=== PATIENT | male | born 1945 | race Hispanic/Latino ===

== ENCOUNTER 2017-09-05 10:45 | Emergency (ER) | payer OTHER ==
[2017-09-05] MEDS ORDERED: KETOROLAC 30 MG/ML INJ ONE (11:34)
[2017-09-05] MEDS ORDERED: ONDANSETRON 4 MG/2 ML VIAL ONE (11:34)
[2017-09-05] MEDS ORDERED: NA CHLORIDE 0.9% 1,000 ML ONE (11:35)
[2017-09-05 11:51] LABS: Absolute Monocytes 0.6 K/uL (0.1-1.3); Absolute Neutrophil 2.7 K/uL (1.8-8.0); Basophils % 0.9 % (0-1.3); Eosinophils % 2.5 % (0-4.4); Hematocrit 39.5 % (39.6-49.0); Lymphocytes % 23.1 % (15.3-44.8); MCH 31.3 pg (27.0-35.0); MCV 93.4 fL (80-100); MPV 9.4 fL (7.6-11.3); Monocytes % 13.7 % (3.3-12.3); RBC Red Blood Cell Count 4.23 M/uL (4.33-5.43)
[2017-09-05 11:55] LABS: Protime INR 1.06
[2017-09-05 12:15] LABS: Potassium 4.1 mEq/L (3.6-5.0)
[2017-09-05 12:21] LABS: Albumin 3.8 g/dL (3.2-5.5); Bilirubin Direct 0.1 mg/dL (0-0.2); Bilirubin Total 0.7 mg/dL (0.3-1.2); Protein, Total 7.1 g/dL (6.0-8.3)
[2017-09-05 12:23] LABS: CKMB Creatine Kinase MB 0.8 ng/ml (0.3-4.0)
--- NOTE | 2017-09-05 12:27 | RAD REPORT ---
EXAM DESCRIPTION: RAD - Chest Single View - 09/05/2017 11:53 am CLINICAL HISTORY: Chest pain. COMPARISON: 05/18/2015 FINDINGS: Portable technique limits examination quality. The lungs are emphysematous but grossly clear. The heart is normal in size. No displaced fractures. IMPRESSION: No acute intrathoracic process suspected.
--- NOTE | 2017-09-05 13:03 | RAD REPORT ---
EXAM DESCRIPTION: CT - Head Brain Wo Cont - 09/05/2017 12:46 pm CLINICAL HISTORY: Headache COMPARISON: None. TECHNIQUE: All CT scans are performed using dose optimization technique as appropriate and may inclu de automated exposure control or mA/KV adjustment according to patient size. FINDINGS: No intracranial hemorrhage, hydrocephalus or extra-axial fluid collection.No areas of brai n edema or evidence of midline shift. The paranasal sinuses and mastoids are clear. The calvarium is intact. IMPRESSION: No acute intracranial abnormality.
--- NOTE | 2017-09-05 13:04 | RAD REPORT ---
EXAM DESCRIPTION: CT - Head angio - 09/05/2017 12:48 pm CLINICAL HISTORY: Headache COMPARISON: Noncontrast CT head same date. FINDINGS: CT angiogram of the [place] was performed. Codominant vertebral arteries are noted. No aneurysm, flow-limiting stenosis or vascular malformation . No dural venous sinus thrombosis seen. IMPRESSION: No significant flow abnormality of the [place] is seen.
--- NOTE | 2017-09-05 13:15 | EDPHYS ---
Physician Documentation [facility] Name: Srikanth Buchanan Age: 72 yrs Sex: Male : 1945 Arrival Date: 09/05/2017 Time: 10:48 Bed 5 Private MD: David Ledbetter V ED Physician Catarino Tomlinson HPI: 09/05 11:19 This 72 yrs old Male presents to ER via Ambulatory with complaints of Headache.ghazala 11:19 The patient complains of pain to the top of head, forehead, left frontal area and right ghazala frontal area. The patient describes the headache as aching, constant. Onset: The symptoms/episode began/occurred 3 day(s) ago. Associated signs and symptoms: The patient has no apparent associated signs or symptoms. Severity of symptoms: At its worst the pain was mild, moderate, in the emergency department the pain is unchanged. Headache History: Denies prior headaches. The symptoms are alleviated by nothing. the symptoms are aggravated by nothing. The patient has not experienced similar symptoms in the past. Historical: - Allergies: 10:58 No Known Allergies; hb - Home Meds: 10:58 aspirin 81 mg Oral chew 1 tab once daily [Active]; Simvastatin Oral [Active]; hb - PMHx: 10:58 Prostate CA; hb - PSHx: 10:58 Prostate; hb - Immunization history:: Adult Immunizations up to date. - Social history:: Smoking status: Patient/guardian denies using tobacco. - Ebola Screening: : No symptoms or risks identified at this time. - Family history:: not pertinent. ROS: 11:19 Constitutional: Negative for fever, chills, and weight loss, Eyes: Negative for injury, ghazala pain, redness, and discharge, ENT: Negative for injury, pain, and discharge, Neck: Negative for injury, pain, and swelling, Cardiovascular: Negative for chest pain, palpitations, and edema, Respiratory: Negative for shortness of breath, cough, wheezing, and pleuritic chest pain, Abdomen/GI: Negative for abdominal pain, nausea, vomiting, diarrhea, and constipation, Back: Negative for injury and pain, : Negative for injury, bleeding, discharge, and swelling, MS/Extremity: Negative for injury and deformity, Skin: Negative for injury, rash, and discoloration, Psych: Negative for depression, anxiety, suicide ideation, homicidal ideation, and hallucinations, Allergy/Immunology: Negative for hives, rash, and allergies, Endocrine: Negative for neck swelling, polydipsia, polyuria, polyphagia, and marked weight changes, Hematologic/Lymphatic: Negative for swollen nodes, abnormal bleeding, and unusual bruising. 11:19 Neuro: Positive for headache. Exam: 11:19 Constitutional: This is a well developed, well nourished patient who is awake, alert, ghazala and in no acute distress. Head/Face: Normocephalic, atraumatic. Eyes: Pupils equal round and reactive to light, extra-ocular motions intact. Lids and lashes normal. Conjunctiva and sclera are non-icteric and not injected. Cornea within normal limits. Periorbital areas with no swelling, redness, or edema. ENT: Nares patent. No nasal discharge, no septal abnormalities noted. Tympanic membranes are normal and external auditory canals are clear. Oropharynx with no redness, swelling, or masses, exudates, or evidence of obstruction, uvula midline. Mucous membranes moist. Neck: Trachea midline, no thyromegaly or masses palpated, and no cervical lymphadenopathy. Supple, full range of motion without nuchal rigidity, or vertebral point tenderness. No Meningismus. Chest/axilla: Normal chest wall appearance and motion. Nontender with no deformity. No lesions are appreciated. Cardiovascular: Regular rate and rhythm with a normal S1 and S2. No gallops, murmurs, or rubs. Normal PMI, no JVD. No pulse deficits. Respiratory: Lungs have equal breath sounds bilaterally, clear to auscultation and percussion. No rales, rhonchi or wheezes noted. No increased work of breathing, no retractions or nasal flaring. Abdomen/GI: Soft, non-tender, with normal bowel sounds. No distension or tympany. No guarding or rebound. No evidence of tenderness throughout. Back: No spinal tenderness. No costovertebral tenderness. Full range of motion. Skin: Warm, dry with normal turgor. Normal color with no rashes, no lesions, and no evidence of cellulitis. MS/ Extremity: Pulses equal, no cyanosis. Neurovascular intact. Full, normal range of motion. Neuro: Awake and alert, GCS 15, oriented to person, place, time, and situation. Cranial nerves II-XII grossly intact. Motor strength 5/5 in all extremities. Sensory grossly intact. Cerebellar exam normal. Normal gait. Psych: Awake, alert, with orientation to person, place and time. Behavior, mood, and affect are within normal limits. 11:19 Neck: ROM/movement: is normal, no acute changes, Meningeal signs: are not present, Kernig's sign is negative, Brudzinski's sign is negative. Vital Signs: 10:56 BP 128 / 69; Pulse 60; Resp 16; Temp 98.7; Pulse Ox 99% on R/A; Weight 61.23 kg; Height hb 5 ft. 8 in. (172.72 cm); Pain 10/10; 12:25 BP 136 / 78; Pulse 57; Resp 16; Pulse Ox 99% ; jl7 12:50 BP 107 / 56; Pulse 51; Resp 14 S; Pulse Ox 97% on R/A; aa5 13:30 BP 103 / 57; Pulse 52; Resp 16 S; Pulse Ox 99% on R/A; Pain 3/10; aa5 10:56 Body Mass Index 20.53 (61.23 kg, 172.72 cm) hb MDM: 10:59 Patient medically screened. [facility] 11:22 Data reviewed: vital signs, nurses notes, lab test result(s), EKG, radiologic studies, [facility] CT scan, plain films. 09/05 11:19 Order name: Basic Metabolic Panel; Complete Time: 13:12 [facility] 09/05 11:19 Order name: BNP; Complete Time: 13:12 [facility] 09/05 11:19 Order name: CBC with Diff; Complete Time: 12:22 [facility] 09/05 11:19 Order name: Ckmb; Complete Time: 13:12 [facility] 09/05 11:19 Order name: CPK; Complete Time: 13:12 [facility] 09/05 11:19 Order name: LFT's; Complete Time: 13:12 [facility] 09/05 11:19 Order name: Magnesium; Complete Time: 13:12 [facility] 09/05 11:19 Order name: PT-INR; Complete Time: 12:22 [facility] 09/05 11:19 Order name: Ptt, Activated; Complete Time: 12:22 [facility] 09/05 11:19 Order name: Troponin (emerg Dept Use Only); Complete Time: 12:22 [facility] 09/05 11:19 Order name: XRAY Chest (1 view); Complete Time: 13:12 [facility] 09/05 11:19 Order name: CT Head Brain wo Cont; Complete Time: 13:12 [facility] 09/05 11:20 Order name: Head angio; Complete Time: 13:12 [facility] 09/05 11:19 Order name: EKG; Complete Time: 11:19 [facility] 09/05 11:19 Order name: Cardiac monitoring; Complete Time: 11:31 [facility] 09/05 11:19 Order name: EKG - Nurse/Tech; Complete Time: 12:18 [facility] 09/05 11:19 Order name: IV Saline Lock; Complete Time: 11:31 [facility] 09/05 11:19 Order name: Labs collected and sent; Complete Time: : [facility] 09/05 11:19 Order name: O2 Per Protocol; Complete Time: : [facility] 09/05 11:19 Order name: O2 Sat Monitoring; Complete Time: 11:31 [facility] Administered Medications: 11:35 Drug: NS 0.9% 500 ml Route: IV; Rate: bolus; Site: right forearm; aa5 12:15 Follow up: IV Status: Completed infusion aa5 11:35 Drug: TORadol 30 mg Route: IVP; Site: right forearm; aa5 11:45 Follow up: Response: No adverse reaction aa5 11:35 Drug: Zofran 4 mg Route: IVP; Site: right forearm; aa5 11:45 Follow up: Response: No adverse reaction aa5 Disposition: 09/05/17 13:15 Discharged to Home. Impression: Headache. - Condition is Stable. - Discharge Instructions: General Headache Without Cause, Migraine Headache, General Headache Without Cause, [id number]. - Prescriptions for Fioricet with Codeine 50- 325-40-30 mg Oral capsule - take 1 capsule by ORAL route every 4 hours as needed not to exceed 6 capsules per 24hrs; 24 capsule. Zofran 4 mg Oral Tablet - take 1 tablet by ORAL route every 12 hours As needed; 20 tablet. - Medication Reconciliation Form, Thank You Letter, Antibiotic Education, Prescription Opioid Use form. - Follow up: David Ledbetter MD; When: 2 - 3 days; Reason: Recheck today's complaints, Continuance of care, Re-evaluation by your physician. - Problem is new. - Symptoms have improved. Signatures: Dispatcher [employer] EDCatarino Hickman, MD MD ghazala Laurent, Ashley, RN RN iw Hetal Disla RN RN aa5 Phylicia Escobar, COLEMAN RN Corrections: (The following items were deleted from the chart) 14:10 13:15 09/05/2017 13:15 Discharged to Home. Impression: Headache. Condition is Stable. iw Forms are Medication Reconciliation Form, Thank You Letter, Antibiotic Education, Prescription Opioid Use. Follow up: David Ledbetter; When: 2 - 3 days; Reason: Recheck today's complaints, Continuance of care, Re-evaluation by your physician. Problem is new. Symptoms have improved. ghazala
--- NOTE | 2017-09-05 13:15 | ER ---
Nurse's Notes [facility] Name: Srikanth Buchanan Age: 72 yrs Sex: Male : 1945 Arrival Date: 09/05/2017 Time: 10:48 Bed 5 Private MD: David Ledbetter V Diagnosis: Headache Presentation: 09/05 10:54 Presenting complaint: Patient states: Headache and night sweats x 2 days. Pt reports hb body aches 3 days ago but resolved yesterday. Transition of care: patient was not received from another setting of care. Onset of symptoms is unknown. Risk Assessment: Do you want to hurt yourself or someone else? Patient reports no desire to harm self or others. Care prior to arrival: None. 10:54 Method Of Arrival: Ambulatory hb 10:54 Acuity: MICAH 3 hb 11:10 Initial Sepsis Screen: Does the patient meet any 2 criteria? No. Patient's initial aa5 sepsis screen is negative. Does the patient have a suspected source of infection? No. Patient's initial sepsis screen is negative. Triage Assessment: 11:10 Headache History: The patient has had previous headaches and this one is similar to aa5 previous episodes. 11:10 Pain: Also complains of no other associated symptoms. aa5 Historical: - Allergies: 10:58 No Known Allergies; hb - Home Meds: 10:58 aspirin 81 mg Oral chew 1 tab once daily [Active]; Simvastatin Oral [Active]; hb - PMHx: 10:58 Prostate CA; hb - PSHx: 10:58 Prostate; hb - Immunization history:: Adult Immunizations up to date. - Social history:: Smoking status: Patient/guardian denies using tobacco. - Ebola Screening: : No symptoms or risks identified at this time. - Family history:: not pertinent. Screenin:10 Abuse screen: Denies threats or abuse. Nutritional screening: No deficits noted. aa5 Tuberculosis screening: No symptoms or risk factors identified. Fall Risk None identified. Assessment: 11:10 General: Appears uncomfortable, Behavior is calm, cooperative. Pain: Complains of pain aa5 in forehead Pain does not radiate. Pain currently is 10 out of 10 on a pain scale. Quality of pain is described as "sore" Pain began 2-3 days ago. Is continuous. Neuro: Level of Consciousness is awake, alert, obeys commands, Oriented to person, place, time, situation, Family Therapist are equal bilaterally Moves all extremities. Speech is normal, Facial symmetry appears normal, Pupils are PERRLA, Reports headache Pt states "the last time I had a headache was about a month ago and Dr. Ledbetter did a CT scan but everything was fine" . Cardiovascular: Heart tones S1 S2 present Rhythm is regular. Respiratory: Airway is patent Respiratory effort is even, unlabored, Respiratory pattern is regular, symmetrical. GI: No signs and/or symptoms were reported involving the gastrointestinal system. Patient currently denies nausea, vomiting. : No signs and/or symptoms were reported regarding the genitourinary system. EENT: No signs and/or symptoms were reported regarding the EENT system. Derm: Skin is pink, warm \\T\\ dry. Musculoskeletal: Range of motion: intact in all extremities. 12:20 Reassessment: Patient and/or family updated on plan of care and expected duration. Pain aa5 level reassessed. Patient is alert, oriented x 3, equal unlabored respirations, skin warm/dry/pink. Patient states feeling better. Pain: Pain currently is 8 out of 10 on a pain scale. 13:30 Reassessment: Pt resting in bed with eyes closed, awakened easily to verbal stimuli, pt aa5 states feeling better, rates headache 3/10 on a pain scale. Awaiting on Dr. Tomlinson to speak to patient. . 14:08 Reassessment: Patient is alert, oriented x 3, equal unlabored respirations, skin aa5 warm/dry/pink. Patient states feeling better. Vital Signs: 10:56 BP 128 / 69; Pulse 60; Resp 16; Temp 98.7; Pulse Ox 99% on R/A; Weight 61.23 kg; Height hb 5 ft. 8 in. (172.72 cm); Pain 10/10; 12:25 BP 136 / 78; Pulse 57; Resp 16; Pulse Ox 99% ; jl7 12:50 BP 107 / 56; Pulse 51; Resp 14 S; Pulse Ox 97% on R/A; aa5 13:30 BP 103 / 57; Pulse 52; Resp 16 S; Pulse Ox 99% on R/A; Pain 3/10; aa5 10:56 Body Mass Index 20.53 (61.23 kg, 172.72 cm) hb ED Course: 10:48 Patient arrived in ED. mr 10:48 None, None is Private Physician. mr 10:48 David Ledbetter MD is Private Physician. mr 10:55 Triage completed. hb 10:56 Arm band placed on left wrist. hb 10:59 Catarino Tomlinson MD is Attending Physician. ghazala 11:06 Hetal Disla, RN is Primary Nurse. aa5 11:10 Patient has correct armband on for positive identification. Placed in gown. Bed in low aa5 position. Call light in reach. Side rails up X2. Adult w/ patient. 11:20 Inserted saline lock: 20 gauge in right forearm, using aseptic technique. Blood aa5 collected. 11:28 Radiology exam delayed due to lab results not completed at this time. (BUN/Creatinine). vm2 11:53 XRAY Chest (1 view) In Process Unspecified. EDMS 12:03 EKG done, by ED staff, reviewed by Catarino Tomlinson MD. jb1 12:15 Radiology exam delayed due to lab results not completed at this time. (BUN/Creatinine). vm2 12:[address] via stretcher. vm2 12:41 CT completed. Patient moved back from CT. cw1 12:46 CT Head Brain wo Cont In Process Unspecified. EDMS 12:46 Head angio In Process Unspecified. EDMS 13:14 David Ledbetter MD is Referral Physician. ghazala 13:30 No provider procedures requiring assistance completed. aa5 14:08 IV discontinued, intact, bleeding controlled, No redness/swelling at site. Pressure aa5 dressing applied. Administered Medications: 11:35 Drug: NS 0.9% 500 ml Route: IV; Rate: bolus; Site: right forearm; aa5 12:15 Follow up: IV Status: Completed infusion aa5 11:35 Drug: TORadol 30 mg Route: IVP; Site: right forearm; aa5 11:45 Follow up: Response: No adverse reaction aa5 11:35 Drug: Zofran 4 mg Route: IVP; Site: right forearm; aa5 11:45 Follow up: Response: No adverse reaction aa5 Outcome: 13:15 Discharge ordered by . ghazala 14:08 Discharged to home ambulatory, with significant other. aa5 14:08 Condition: improved 14:08 Discharge instructions given to patient, significant other, Instructed on discharge instructions, follow up and referral plans. medication usage, Demonstrated understanding of instructions, follow-up care, medications, Prescriptions given X 2. 14:10 Patient left the ED. iw Signatures: Dispatcher [employer] EDRomeo Nolan jb1 Catarino Tomlinson MD MD cha Rivera, Maria mr Ashley Mancilla, RN RN Hetal Disla RN RN [email or web address] Ale Jaime cw1 Phylicia Escobar RN RN Itzel Atkinson RN RN jl7 Chantal Gould 2 Corrections: (The following items were deleted from the chart) 10:56 10:56 BP 128 / 69; Pulse 60bpm; Resp 16bpm; Pulse Ox 99% RA; Temp 98.7F; 56.7 kg; hb Height 5 ft. 8 in.; BMI: 19.0; Pain 10/10; hb
[2017-09-05 14:16] VITALS: TEMP 98.7
[2017-09-05 14:19] VITALS: BP 103/57; O2SAT 99
--- NOTE | 2017-09-06 09:11 | EKG ---
Test Date: 2017-09-05 Test Time: 11:51:19 Temperer: DANN MEASUREMENT RESULTS: Intervals: Rate: 54 NE: 150 QRSD: 78 QT: 438 QTc: 415 [place]: P: 58 NE: 150 QRS: -43 T: 24 INTERPRETIVE STATEMENTS: Sinus bradycardia Left axis deviation Abnormal ECG Compared to ECG 12/11/2012 03:51:03 No significant changes Electronically Signed On 09-06-17 09:08:40 CDT by Harshal Dixon
== END 2017-09-05 14:10 | disposition home or self-care (01) ==
LOC: ER 10:45
DX: R51 Headache (principal); Z79.82 Long term (current) use of aspirin; Z85.46 Personal history of malignant neoplasm of prostate
CPT/HCPCS: 36415; 70450; 70496; 71045; 80048; 80076; 82550; 82553; 83735; 83880; 84484; 85025; 85610; 85730; 93005; 96361; 96374; 96375; 99284; J2405; J7030; Q9967